=== PATIENT | female | born 1970 ===

== ENCOUNTER 2024-01-28 13:19 | Outpatient (OUT) | payer OTHER, SELFPAY ==
--- NOTE | 2024-01-28 13:28 | XR_ITS ---
[address] [address] Patient Name: LATASHA NGO MRN: [id number] date: 1970 Sex: F Assigned Patient Location: [facility] Current Patient Location: Accession/Order Number: [id number] Exam Date: 01/28/2024 13:32 Report Date: 01/29/2024 06:35 At the request of: NON-STAFF PHYSICIAN Procedure: XR foot JOSTIN 2V EXAMINATION: XR foot JOSTIN 2V HISTORY: Bilateral Pes Planus COMPARISON: No relevant comparison available. FINDINGS: RIGHT FINDINGS: BONES: Small calcaneal plantar spur. Moderate size degenerative enthesophyte at Achilles tendon insertion into calcaneus. No fracture, dislocation, or bone lesion. No appreciable flattening of plantar arch. SOFT TISSUES: No visible soft tissue swelling. OTHER: Negative. LEFT FINDINGS: BONES: Small calcaneal plantar spur. Moderate size degenerative enthesophyte at Achilles tendon insertion into calcaneus. No fracture, dislocation, or bone lesion. No appreciable flattening of plantar arch. SOFT TISSUES: No visible soft tissue swelling. OTHER: Negative. XR/XR foot JOSTIN 2V IMPRESSION: RIGHT CONCLUSION: No acute bone abnormality or significant degenerative changes. LEFT CONCLUSION: No acute bone abnormality or significant degenerative changes. Electronically authenticated by: FERMIN KENDALL Date: 01/29/2024 06:35
== END 2024-01-28 13:20 | disposition home or self-care (01) ==
LOC: RAD 13:24
DX: M21.41 Flat foot [pes planus] (acquired), right foot (principal); M21.42 Flat foot [pes planus] (acquired), left foot
CPT/HCPCS: 73620